=== PATIENT | female | born 1970 | race Caucasian/White ===

== ENCOUNTER 2018-02-22 09:24 | Inpatient (IN) | payer MEDICAID ==
[~2018-02-22] VITALS: Ht 162.6 cm; Wt 64.5 kg
[~2018-02-22 09:24] MED LIST: RINGERS SOLUTION,LACTATED 1,000 ML IV ONE
[2018-02-22] MEDS ORDERED: RINGERS SOLUTION,LACTATED 1,000 ML IV ONE ×2 (09:25→13:28)
[2018-02-22 09:54] LABS: BASOPHILS % (AUTO) 1.1 % (0.0-2.0); EOSINOPHILS % (AUTO) 2.4 % (1.0-6.0); HEMATOCRIT 30.8 % (36-46); HEMOGLOBIN 10.4 g/dL (12.0-16.0); LYMPHOCYTES # (AUTO) 1.1 K/uL (1.0-4.8); LYMPHOCYTES % (AUTO) 20.9 % (22.0-44.0); MEAN CORPUSCULAR HEMOGLOBIN 31.9 pg (26.0-34.0); MEAN CORPUSCULAR VOLUME 94 fL (80-100); MONOCYTES # (AUTO) 0.5 K/uL (0.1-1.0); MONOCYTES % (AUTO) 9.5 % (2.0-9.0); NEUTROPHILS # (AUTO) 3.3 K/uL (1.8-7.7); NEUTROPHILS % (AUTO) 66.1 % (40.0-70.0); PLATELET COUNT (AUTO) 325 K/uL (150-450); RED BLOOD CELL COUNT(AUTO) 3.28 MIL/uL (4.00-5.20); RED CELL DISTRIBUTION WIDTH 15.8 % (11.5-14.5)
[2018-02-22] MEDS ORDERED: SERETIDE PO (09:56)
[2018-02-22] MEDS ORDERED: HYDR-309 PO (09:56)
[2018-02-22 10:03] LABS: ANION GAP 10 mmol/L (8-16); CALCIUM, TOTAL 8.9 mg/dL (8.8-10.5); CARBON DIOXIDE 28 mmol/L (22-29); CHLORIDE 101 mmol/L (98-107); CREATININE 0.71 mg/dL (0.60-1.30); GLOMERULAR FILTR. RATE CALC > 60 mL/min (>60); GLUCOSE,RANDOM 85 mg/dL (70-110); POTASSIUM 3.7 mmol/L (3.5-5.1); SODIUM SERUM 139 mmol/L (136-145); UREA NITROGEN, BLOOD 11 mg/dL (7-18)
[2018-02-22 10:06] LABS: PROTHROMBIN TIME 10.4 SEC (9.4-11.6)
[2018-02-22] MEDS ORDERED: LIDOCAINE HCL 2%/EPI 1:200,000/PF 20 ML VIAL ONE (10:48)
[2018-02-22] MEDS ORDERED: BUPIVACAINE HCL/PF 0.5% 30 ML VIAL ONE (10:48)
[2018-02-22] MEDS ORDERED: MINERAL OIL 10 ML VIAL TP ONE (10:48)
[2018-02-22] MEDS ORDERED: CeFAZolin 2 GM/DEXTROSE 50 ML IV ONE ×2 (11:12→11:15)
[2018-02-22] MEDS ORDERED: HYDROmorphone 2 MG/ML SYRINGE IVP PRN (11:15)
[2018-02-22] MEDS ORDERED: FentaNYL CITRATE-PF 100 MCG/2 ML VIAL IVP PRN (11:15)
[2018-02-22] MEDS ORDERED: MEPERIDINE-PF 25 MG/ML SYRINGE IVP PRN (11:15)
[2018-02-22] MEDS ORDERED: PROPOFOL 1000 MG/ISO-OSM 100 ML IV ONE (13:03)
[2018-02-22] MEDS ORDERED: ACETAMINOPHEN 500 MG TABLET PO PRN (14:15)
[2018-02-22 16:30] VITALS: BP 121/78
[2018-02-22 20:09] VITALS: BP 120/77
[2018-02-22 23:30] VITALS: BP 120/76
[2018-02-23] MEDS ORDERED: FentaNYL CITRATE-PF 100 MCG/2 ML VIAL IVP ONE (05:03)
[2018-02-23] MEDS ORDERED: SUCCINYLCHOLINE CHLORIDE 20 MG/ML 10 ML VIAL IVP ONE (05:03)
[2018-02-23] MEDS ORDERED: NEOSTIGMINE METHYLSULFATE 1 MG/ML 10 ML VIAL IVP ONE (05:03)
[2018-02-23] MEDS ORDERED: LIDOCAINE HCL/PF 2% 5 ML VIAL IM ONE (05:03)
[2018-02-23] MEDS ORDERED: DEXAMETHASONE SOD PHOS 4 MG/ML VIAL IVP ONE (05:03)
[2018-02-23] MEDS ORDERED: ONDANSETRON HCL 4 MG/2 ML VIAL IVP ONE (05:03)
[2018-02-23] MEDS ORDERED: GLYCOPYRROLATE 0.2 MG/ML VIAL IM ONE (05:03)
[2018-02-23] MEDS ORDERED: ROCURONIUM BROMIDE 10 MG/ML 5 ML VIAL IVP ONE (05:03)
[2018-02-23] MEDS ORDERED: MIDAZOLAM HCL 2 MG/2 ML VIAL IVP ONE (05:03)
[2018-02-23] MEDS ORDERED: METOCLOPRAMIDE HCL 5 MG/ML 2 ML VIAL IVP ONE (05:03)
[2018-02-23] MEDS ORDERED: PROPOFOL 1% 20 ML VIAL IVP ONE (05:03)
[2018-02-23] MEDS: OXYGEN THERAPY IH SCH ×2 (08:00→20:00)
[2018-02-23 08:04] VITALS: BP 113/80
[2018-02-23] MEDS: IBUPROFEN 600 MG TABLET PO PRN (09:16)
[2018-02-23 11:57] VITALS: BP 116/77
[2018-02-23 15:39] VITALS: BP 109/75
[2018-02-23] MEDS: HYDROCODONE/ACETAMINOPHEN 5-325 MG TABLET PO PRN (19:35)
[2018-02-23 20:11] VITALS: BP 121/72
[2018-02-23 23:53] VITALS: BP 112/71
[2018-02-24] MEDS: HYDROCODONE/ACETAMINOPHEN 5-325 MG TABLET PO PRN ×3 (02:38→21:56)
[2018-02-24 04:35] VITALS: BP 105/67
[2018-02-24] MEDS: OXYGEN THERAPY IH SCH ×2 (08:00→20:00)
[2018-02-24 08:22] VITALS: BP 117/74
[2018-02-24] MEDS: IBUPROFEN 600 MG TABLET PO PRN ×2 (08:25→18:19)
[2018-02-24 11:50] VITALS: BP 121/77
[2018-02-24 16:06] VITALS: BP 116/71
[2018-02-24 19:34] VITALS: BP 135/85
[2018-02-24 23:23] VITALS: BP 111/76
[2018-02-25] VITALS (7 sets, daily range): BP systolic 101–138; BP diastolic 58–79
[2018-02-25] MEDS: HYDROCODONE/ACETAMINOPHEN 5-325 MG TABLET PO PRN ×2 (06:30→20:46)
[2018-02-25] MEDS: OXYGEN THERAPY IH SCH ×2 (08:00→20:00)
[2018-02-25] MEDS ORDERED: IBUPROFEN 600 MG TABLET PO PRN (12:45)
[2018-02-25] MEDS ORDERED: ACETAMINOPHEN 500 MG TABLET PO PRN (12:45)
[2018-02-25] MEDS ORDERED: SODIUM CHLORIDE 0.9% 250 ML IV ONE (15:14)
[2018-02-25] MEDS: CeFAZolin 1 GM/DEXTROSE 50 ML IV SCH (15:21)
[2018-02-25 16:31] LABS: APPEARANCE,URINE CLEAR (CLEAR); BILIRUBIN,URINE NEGATIVE (NEGATIVE); GLUCOSE, URINE (UA) NEGATIVE (NEGATIVE); KETONES,URINE NEGATIVE (NEGATIVE); LEUKOCYTE ESTERASE ,URINE NEGATIVE (NEGATIVE); NITRATE,URINE NEGATIVE (NEGATIVE); OCCULT BLOOD,URINE NEGATIVE (NEGATIVE); PROTEIN,URINE NEGATIVE (NEGATIVE); UROBILINOGEN,URINE 0.2 mg/dL (<=1.0)
[2018-02-25 16:57] LABS: BACTERIA,URINE None Seen /HPF (None Seen); RBC,URINE None Seen /HPF (0-2); SQUAMOUS EPITHELIAL CELL,UR Rare /LPF (None Seen); WBC,URINE 0-2 /HPF (0-5)
[2018-02-25] MEDS: IBUPROFEN 600 MG TABLET PO PRN (19:08)
[2018-02-26] MEDS: CeFAZolin 1 GM/DEXTROSE 50 ML IV SCH ×2 (00:01→07:19)
[2018-02-26] MEDS: IBUPROFEN 600 MG TABLET PO PRN ×2 (00:06→07:19)
[2018-02-26 04:45] VITALS: BP 102/66
[2018-02-26] MEDS ORDERED: CEPH-582 PO (06:41)
[2018-02-26] MEDS ORDERED: MO8B PO (06:44)
[2018-02-26 07:54] VITALS: BP 112/75
[2018-02-26] MEDS ORDERED: IBUPROFEN 800 MG TABLET PO PRN (08:15)
[2018-02-26 11:41] VITALS: BP 113/69
[2018-02-26] MEDS ORDERED: CeFAZolin SODIUM 1 GM in DEXTROSE 5%-WATER 10 ML IV SCH (15:00)
[2018-02-26 15:32] VITALS: BP 113/69
== END 2018-02-26 17:00 | disposition home or self-care (01) | DRG 361 ==
LOC: SURGERY 09:24 → 4E 15:40 → 6N 02-26 16:00
PROVIDERS: ADMIT Surgery; ATTEND Surgery
PROC: 0KBJ0ZZ Excision of Left Thorax Muscle, Open Approach (ICD-10-PCS; 2018-02-22)
PROC: 0HR5X74 Replacement of Chest Skin with Autologous Tissue Substitute, Partial Thickness, External Approach (ICD-10-PCS; 2018-02-22)
PROC: 0HBJXZZ Excision of Left Upper Leg Skin, External Approach (ICD-10-PCS; principal; 2018-02-22 12:15)
DX: C79.81 Secondary malignant neoplasm of breast (principal); R65.10 Systemic inflammatory response syndrome (SIRS) of non-infectious origin without acute organ dysfunction; C50.912 Malignant neoplasm of unspecified site of left female breast; Z91.013 Allergy to seafood; Z90.12 Acquired absence of left breast and nipple
CPT/HCPCS: 87040; 87081; 88305; 93005; J0330; J0690; J1100; J2250; J2405; J2704; J2765; J3010; J3490; J7050; J7060; J7120